=== PATIENT | male | born 1960 | race African-American/Black ===

== ENCOUNTER 2022-01-07 20:45 | Emergency (ER) | payer MEDICAID, OTHER ==
[~2022-01-07] VITALS: Ht 167.6 cm; Wt 172.0 kg
[2022-01-07] MEDS ORDERED: HYDROCODONE/ACETAMINOPHEN 5/325MG TABLET PO ONE (21:30)
[2022-01-07] MEDS ORDERED: KETOROLAC 60MG/2ML VIAL IM ONE (21:30)
[2022-01-07] MEDS ORDERED: MORPHINE SULFATE 10 MG/ML CPJ IM ONE (23:45)
[2022-01-08] MEDS: MORPHINE SULFATE 10 MG/ML CPJ IM NR ×2 (00:30→02:21)
[2022-01-08] MEDS ORDERED: HYDR-4001 MT (02:08)
[2022-01-08] MEDS ORDERED: INDO50CA98 MT (02:08)
[2022-01-08 02:40] VITALS: BP 131/78
== END 2022-01-08 02:41 | disposition home or self-care (01) ==
LOC: ER 20:45
DX: M10.9 Gout, unspecified (principal); M25.571 Pain in right ankle and joints of right foot; E11.9 Type 2 diabetes mellitus without complications; I10 Essential (primary) hypertension; E78.00 Pure hypercholesterolemia, unspecified; Z79.84 Long term (current) use of oral hypoglycemic drugs
CPT/HCPCS: 73610; 96372; 99284; J1885; J2270; Z7610

== ENCOUNTER 2025-01-22 22:01 | Inpatient (IN) | payer BC, MEDICAID ==
[~2025-01-22] VITALS: Ht 177.8 cm; Wt 145.8 kg
[~2025-01-22 22:01] MED LIST: HYDR-4001 MT; INDO50CA98 MT
[2025-01-22 22:02] VITALS: O2SAT 95
[2025-01-22 23:37] LABS: HEMATOCRIT. 28.2 % (42.0-52.0); HEMOGLOBIN. 9.4 g/dL (14.0-18.0); MEAN PLATELET VOLUME 9.7 fl (7.4-10.4); PLATELET 208 x1000/uL (130-400); RED BLOOD CELL COUNT 3.08 mill/uL (4.7-6.1); RED CELL DISTRIBUTION WIDTH 14.2 % (11.6-14.6)
[2025-01-22 23:49] LABS: CREATININE 4.8 mg/dL (0.6-1.3)
[2025-01-22 23:50] LABS: ETHANOL BLOOD < 10 mg/dL (<10)
[2025-01-22 23:51] LABS: ASPARTATE AMINOTRANSFERASE 20 IU/L (<34)
[2025-01-22 23:52] LABS: BILIRUBIN DIRECT < 0.1 mg/dL (<=3.0); BILIRUBIN TOTAL 0.2 mg/dL (0.1-1.0); PHOSPHORUS 3.8 mg/dL (2.5-4.9); PROTEIN TOTAL 8.2 g/dL (6.0-8.3); TROPONIN I HIGH SENSITIVITY 17 ng/L (3.0-53)
[2025-01-23 00:20] LABS: UREA NITROGEN BLOOD 106 mg/dL (9-23)
[2025-01-23 01:01] LABS: INR 1.1
[2025-01-23 01:18] LABS: EOSINOPHILS % MANUAL 1.0 % (0.0-5.0); LYMPHOCYTES % MANUAL 4.0 % (20.0-50.0); MONOCYTES % MANUAL 7.0 % (2.0-8.0); NEUTROPHILS % MANUAL 88.0 % (45.0-75.0); PLATELET ESTIMATE NORMAL
[2025-01-23 03:22] LABS: CLARITY URINE CLEAR (CLEAR); COLOR URINE YELLOW (YELLOW); GLUCOSE URINE 1+ (NEGATIVE); KETONES URINE NEGATIVE (NEGATIVE); LEUKOCYTE ESTERASE URINE NEGATIVE (NEGATIVE); NITRITE URINE NEGATIVE (NEGATIVE); OCCULT BLOOD URINE NEGATIVE (NEGATIVE); PH URINE 5.0 (4.5-8.0); PROTEIN URINE NEGATIVE (NEGATIVE); SPECIFIC GRAVITY URINE 1.009 (1.005-1.030); UROBILINOGEN URINE 0.2 E.U./dL (0.2-1.0)
[2025-01-23 05:37] LABS: *AMPHETAMINES SCREEN URINE NEGATIVE (NEGATIVE); *BARBITURATES SCREEN URINE NEGATIVE (NEGATIVE); *BENZODIAZEPINES SCREEN URINE NEGATIVE (NEGATIVE); *COCAINE SCREEN URINE NEGATIVE (NEGATIVE); CANNABINOID URINE SCREEN NEGATIVE (NEGATIVE); ECSTASY MDMA SCREEN URINE NEGATIVE (NEGATIVE); METHADONE URINE SCREEN NEGATIVE (NEGATIVE); OPIATES URINE SCREEN NEGATIVE (NEGATIVE); PHENCYCLIDINE URINE SCREEN NEGATIVE (NEGATIVE)
[2025-01-23 06:08] LABS: WBC URINE 0-2 /hpf (0-2)
[2025-01-23 06:09] LABS: BACTERIA URINE NONE SEEN; RBC URINE NONE SEEN /hpf (0-2); SQUAMOUS EPITHELIAL CELL URINE FEW /lpf (RARE/1+)
[2025-01-23 06:10] VITALS: BP 126/68; PULSE 85; RESP 18; TEMP 36.6; O2SAT 98
[2025-01-23 08:00] VITALS: BP 132/55; PULSE 82; RESP 18; TEMP 36.5; TEMP 36.5292; O2SAT 98
[2025-01-23] MEDS ORDERED: GABA-1180 PO (08:31)
[2025-01-23] MEDS ORDERED: HYDR-4001 PO (08:31)
[2025-01-23] MEDS ORDERED: ALLO100T PO (08:31)
[2025-01-23] MEDS ORDERED: SODI10PO PO (08:31)
[2025-01-23] MEDS ORDERED: FURO80TA3 PO (08:31)
[2025-01-23] MEDS ORDERED: SITA100T11 PO (08:31)
[2025-01-23] MEDS ORDERED: AMLO5TAB88 PO (08:31)
[2025-01-23] MEDS ORDERED: ATOR40TA70 PO (08:31)
[2025-01-23] MEDS ORDERED: TAMS-54 PO (08:31)
[2025-01-23] MEDS ORDERED: LISI10TA26 PO (08:31)
[2025-01-23] MEDS ORDERED: EMPA10TA PO (08:31)
[2025-01-23] MEDS ORDERED: CHOL12509 (08:31)
[2025-01-23] MEDS ORDERED: DEXTROSE 50% WATER 50ML SYRINGE IV PRN (09:00)
[2025-01-23] MEDS ORDERED: *PATIENT'S OWN MEDICATION STORAGE XX SCH (10:15)
[2025-01-23 12:00] VITALS: BP 127/58; PULSE 89; TEMP 36.4
[2025-01-23] MEDS: BLOOD SUGAR DIAGNOSTIC STRIP TEST SCH (12:38)
[2025-01-23 12:43] LABS: TROPONIN I HIGH SENSITIVITY 17 ng/L (3.0-53)
[2025-01-23] MEDS: GUAIFENESIN-DM 200MG-20MG/10ML UDC PO PRN (12:51)
[2025-01-23] MEDS: ENOXAPARIN 40MG/0.4ML SYR SUBCUT SCH (12:51)
[2025-01-23] MEDS: INSULIN LISPRO 100 UNITS/ML SUBCUT SCH (12:52)
[2025-01-23 16:00] VITALS: BP 116/57; PULSE 83; RESP 18; TEMP 36.3; O2SAT 100
[2025-01-23 20:00] VITALS: BP 94/53; PULSE 86; RESP 19; TEMP 36.9; O2SAT 97
[2025-01-24] VITALS: BP 124/62; PULSE 85; RESP 18; TEMP 36.7; O2SAT 96
[2025-01-24 04:00] VITALS: BP 114/58; PULSE 72; RESP 19; TEMP 36.8; O2SAT 98
[2025-01-24 08:00] VITALS: BP 124/68; PULSE 81; RESP 18; TEMP 36.6; O2SAT 96
[2025-01-24 10:52] LABS: HEMATOCRIT. 29.8 % (42.0-52.0); HEMOGLOBIN. 9.5 g/dL (14.0-18.0); MEAN PLATELET VOLUME 9.5 fl (7.4-10.4); PLATELET 194 x1000/uL (130-400); RED BLOOD CELL COUNT 3.24 mill/uL (4.7-6.1); RED CELL DISTRIBUTION WIDTH 14.0 % (11.6-14.6)
[2025-01-24 11:12] LABS: CREATININE 4.3 mg/dL (0.6-1.3); UREA NITROGEN BLOOD 90.0 mg/dL (9-23)
[2025-01-24 12:00] VITALS: BP 118/71; PULSE 76; RESP 19; TEMP 36.6; O2SAT 97
[2025-01-24 15:58] VITALS: BP 124/68; PULSE 81; RESP 18; TEMP 97.8
[2025-01-24 16:00] VITALS: BP 121/71; PULSE 83; RESP 20; TEMP 36.7; O2SAT 97
[2025-01-24 20:05] LABS: LYMPHOCYTES % MANUAL 17.0 % (20.0-50.0); MONOCYTES % MANUAL 17.0 % (2.0-8.0); NEUTROPHILS % MANUAL 66.0 % (45.0-75.0); PLATELET ESTIMATE NORMAL
== END 2025-01-24 18:00 | disposition home or self-care (01) | DRG 74 ==
LOC: ER 22:01 → 6WST 01-23 00:49 → EDBEDREQ 01-23 01:48 → EDBEDREQTM 01-23 01:48 → ENRESERV 01-23 05:32
PROVIDERS: ADMIT Internal Medicine; ATTEND Internal Medicine
DX: G90.89 Other disorders of autonomic nervous system (principal); N17.9 Acute kidney failure, unspecified; J90 Pleural effusion, not elsewhere classified; Z68.42 Body mass index [BMI] 45.0-49.9, adult; I13.0 Hypertensive heart and chronic kidney disease with heart failure and stage 1 through stage 4 chronic kidney disease, or unspecified chronic kidney disease; E66.01 Morbid (severe) obesity due to excess calories; D64.9 Anemia, unspecified; G47.33 Obstructive sleep apnea (adult) (pediatric); M10.9 Gout, unspecified; E11.22 Type 2 diabetes mellitus with diabetic chronic kidney disease; E78.00 Pure hypercholesterolemia, unspecified; Z82.49 Family history of ischemic heart disease and other diseases of the circulatory system
CPT/HCPCS: 36415; 71045; 76770; 80048; 80076; 80305; 80320; 81003; 82550; 82962; 83036; 83735; 83880; 84100; 84484; 85025; 93005; 94070; 94660; 99285; J1650; J1815; G0480